=== PATIENT | female | born 1995 | race African-American/Black ===

== ENCOUNTER 2017-01-23 04:38 | Emergency (ER) | payer OTHER ==
[~2017-01-23] VITALS: Ht 157.5 cm; Wt 122.7 kg
[~2017-01-23 04:38] MED LIST: MOTRIN600 MG PO; PREDNISONE20 MG PO; TESSALON PERLE100 MG PO; VENTOLIN HFA18 GM IH; ZITHROMAX Z-PA250 MG PO; ZOFRAN ODT4 MG PO
[2017-01-23 05:24] LABS: CHLORIDE 106 mEq/L (99-109); POTASSIUM 4.1 mEq/L (3.7-5.4); SODIUM 135 mEq/L (136-147)
[2017-01-23 05:26] LABS: GLUCOSE 104 mg/dL (70-99)
[2017-01-23 05:27] LABS: ANION GAP 7 MEQ/L (2-14)
[2017-01-23 05:28] LABS: TOTAL BILIRUBIN 0.2 mg/dL (0.0-1.0)
[2017-01-23 05:29] LABS: ALKALINE PHOSPHATASE 84 IU/L (3-129)
[2017-01-23 05:30] LABS: GFR ESTIMATE (CALCULATED) > 59 mL/min/
[2017-01-23 05:31] LABS: UREA NITROGEN (BUN) 23 mg/dL (9-23)
[2017-01-23 05:33] LABS: LIPASE 62 U/L (1.0-51.0)
[2017-01-23 05:39] LABS: QUANTITATIVE HCG < 4.0 MIU/ML
[2017-01-23 05:40] LABS: ADD MIUA? YES; BILIRUBIN NEGATIVE; BLOOD SMALL; COLOR YELLOW ((YELLOW)); GLUCOSE (STRIP) NEGATIVE; KETONES NEGATIVE; LEUKOCYTES NEGATIVE; NITRITE NEGATIVE; PROTEIN (STRIP) NEGATIVE; SPECIFIC GRAVITY 1.028 (1.000-1.030); UROBILINOGEN 0.2 MG/DL (0.2-1.0)
[2017-01-23] MEDS ORDERED: TYLENOL REGULA325 MG PO (05:42)
[2017-01-23 05:45] LABS: HEMATOCRIT 39.8 % (36.0-46.0); MCH 30.3 PG (29.0-34.0); MCHC 32.9 G/DL (30.0-36.0); MCV 91.9 FL (83-99); MEAN PLAT.VOLUME 10.3 uM^3 (9.5-12.4); PLATELET COUNT 342 K/uL (156-360); RBC DIS.WIDTH-CV 12.2 % (11.8-14.6); RBC DIS.WIDTH-SD 41.1 % (39-53); RED BLOOD COUNT 4.33 M/uL (3.80-5.20); WHITE BLOOD COUNT 14.8 K/uL (4.1-10.2)
[2017-01-23] MEDS ORDERED: ZOFRAN ODT4 MG PO (05:46)
[2017-01-23] MEDS ORDERED: PEPCID20 MG PO (05:50)
[2017-01-23 05:53] LABS: BACTERIA NONE SEEN /HPF; EPITHELIAL CELLS RARE /HPF; MUCUS NONE SEEN /LPF; RED BLOOD CELLS 0-5 /HPF (0-5); UCUL ADDED? NO; WHITE BLOOD CELLS 0-5 /HPF (0-5)
[2017-01-23 05:56] VITALS: BP 132/84
== END 2017-01-23 06:03 | disposition home or self-care (01) ==
LOC: EME 04:38
PROVIDERS: Physician Assistant
DX: R11.2 Nausea with vomiting, unspecified (principal); J45.909 Unspecified asthma, uncomplicated; F17.200 Nicotine dependence, unspecified, uncomplicated
CPT/HCPCS: 80053; 81003; 83690; 84702; 85027; 99281; 99284; J2550

== ENCOUNTER 2017-01-25 03:22 | Emergency (ER) | payer OTHER ==
[~2017-01-25] VITALS: Ht 157.5 cm; Wt 122.2 kg
[~2017-01-25 03:22] MED LIST changes: +PEPCID20 MG PO; +TYLENOL REGULA325 MG PO
[2017-01-25 03:24] VITALS: BP 157/94
[2017-01-25 03:51] LABS: HEMATOCRIT 37.3 % (36.0-46.0); MCH 30.1 PG (29.0-34.0); MCHC 33.2 G/DL (30.0-36.0); MCV 90.5 FL (83-99); MEAN PLAT.VOLUME 10.1 uM^3 (9.5-12.4); PLATELET COUNT 326 K/uL (156-360); RBC DIS.WIDTH-CV 12.3 % (11.8-14.6); RBC DIS.WIDTH-SD 40.8 % (39-53); RED BLOOD COUNT 4.12 M/uL (3.80-5.20); WHITE BLOOD COUNT 13.6 K/uL (4.1-10.2)
[2017-01-25 04:05] LABS: CHLORIDE 108 mEq/L (99-109); POTASSIUM 3.9 mEq/L (3.7-5.4); SODIUM 137 mEq/L (136-147)
[2017-01-25 04:07] LABS: GLUCOSE 98 mg/dL (70-99)
[2017-01-25 04:08] LABS: ANION GAP 7 MEQ/L (2-14)
[2017-01-25 04:09] LABS: TOTAL BILIRUBIN 0.2 mg/dL (0.0-1.0)
[2017-01-25 04:11] LABS: ALKALINE PHOSPHATASE 89 IU/L (3-129); GFR ESTIMATE (CALCULATED) > 59 mL/min/
[2017-01-25 04:12] LABS: UREA NITROGEN (BUN) 16 mg/dL (9-23)
[2017-01-25 04:14] LABS: LIPASE 58 U/L (1.0-51.0)
[2017-01-25 04:20] LABS: QUANTITATIVE HCG < 4.0 MIU/ML
== END 2017-01-25 04:43 | disposition home or self-care (01) ==
LOC: EME 03:22
PROVIDERS: Emergency Medicine
DX: K52.9 Noninfective gastroenteritis and colitis, unspecified (principal); N91.2 Amenorrhea, unspecified; R07.9 Chest pain, unspecified; F17.200 Nicotine dependence, unspecified, uncomplicated
CPT/HCPCS: 80053; 81003; 83690; 84702; 85027; 99281; 99284; J2405; J7030